=== PATIENT | female | born 1955 | race Caucasian/White ===

== ENCOUNTER 2019-05-29 19:37 | Emergency (ER) | payer BC ==
--- NOTE | 2019-05-29 19:57 | EDM.PDOC ---
ED HPI GENERAL MEDICAL PROBLEM - General Chief Complaint: General Stated Complaint: NILO JUSTIN Time Seen by Provider: 05/29/19 19:52 Source of Information: Reports: Patient History Limitations: Reports: No Limitations - History of Present Illness INITIAL COMMENTS - FREE TEXT/NARRATIVE: 23-year-old female presents to the ED for reevaluation after reportedly having a high serum potassium level at [facility] today. Routine lab work revealed a serum potassium level of 7.0. She has no symptoms of hyperkalemia. Her's serum creatinine is 0.6 indicating that this is most likely a fictitious number likely due to hemolysis of red cells. Prongs with irregular heartbeat and is wondering if the 2 were not connected. She just finished Holter monitor and hand in on Sunday this week and has not yet received the interpretation. She is having multiple unifocal PVCs in the ED. He is aware of them at times as well. Likely due to the compensatory pause "thud" that occurs with PVCs. Onset: Today Onset Date: 05/22/19 (The patient was in the clinic today for complete physical exam and had lab work performed. No defined that her serum potassium value returned abnormally high at 7.0. She brings along her lab work and her weight function shows a creatinine of 0.6. This strongly suggests that the elevated serum potassium is fictitious likely due to hemolysis.) Duration: Intermittent (Irregular heartbeat just finished a Holter monitor and has not received the results.) Location: Reports: Chest (He is aware of palpitations and headaches sides in her chest.) Quality: Reports: Other Severity: Moderate Improves with: Reports: None (Dictations) Worsens with: Reports: None Context: Denies: Activity, Exercise, Lifting, Sick Contact, Trauma, Other Associated Symptoms: Reports: Malaise. 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 Denies: SOB on Exertion Respiratory History: Reports: Asthma (Recently diagnosed with asthma.) Gastrointestinal History: Reports: Other (See Below) (Was ill with what sounds like gastroenteritis but brought up a good deal of dark black emesis concerning for possible blood. This was about 2 months ago. She has no other signs or symptoms of peptic ulcer disease.) Social & Family History - Living Situation & Occupation Living situation: Reports: Occupation: Employed ED ROS GENERAL - Review of Systems Review Of Systems: See Below Constitutional: Reports: Malaise, Weakness, Fatigue, Decreased Appetite. Denies : Fever, Chills, Weight Loss HEENT: Reports: Glasses Respiratory: Denies: Shortness of Breath, Wheezing, Pleuritic Chest Pain, Cough , Sputum Cardiovascular: Reports: Palpitations Endocrine: Reports: Fatigue GI/Abdominal: Reports: No Symptoms : Reports: No Symptoms Musculoskeletal: Reports: No Symptoms Skin: Reports: No Symptoms Neurological: Reports: No Symptoms Psychiatric: Reports: No Symptoms Hematologic/Lymphatic: Reports: No Symptoms Immunologic: Reports: No Symptoms ED EXAM, GENERAL - Physical Exam Exam: See Below Exam Limited By: No Limitations General Appearance: Alert, WD/WN, Anxious, Mild Distress, Other (Catheters 37.3. Heart rate was 108 at the bedside respiratory to 16 O2 sats 100% on room air BP 136/81.) Eye Exam: Bilateral Eye: Normal Inspection (No peripheral pallor.) Head: Atraumatic, Normocephalic Neck: Normal Inspection, Supple, Non-Tender, Full Range of Motion. No: Lymphadenopathy (L), Lymphadenopathy (R) Respiratory/Chest: No Respiratory Distress, Lungs Clear, Normal Breath Sounds, No Accessory Muscle Use, Chest Non-Tender Cardiovascular: Normal Peripheral Pulses, No Edema, No Gallop, No Murmur, No Rub , Irregularly Irregular (Yaya PVCs unifocal on the monitor.) Peripheral Pulses: 3+: Posterior Tibial (L), Posterior Tibial (R), Dorsalis Pedis (L), Dorsalis Pedis (R) GI/Abdominal: Normal Bowel Sounds, Soft, Non-Tender, No Organomegaly, No Abnormal Bruit, No Mass, Pelvis Stable Extremities: Normal Inspection, Normal Range of Motion, Non-Tender, No Pedal Edema Neurological: Alert, Oriented, CN II-XII Intact, Normal Cognition Psychiatric: Anxious Skin Exam: Warm, Dry, Intact, Normal Color, No Rash EKG INTERPRETATION EKG Date: 05/29/19 Time: 19:48 Rhythm: Other Rate (Beats/Min): 103 (Frequent multifocal PVCs.) [place]: Normal P-Wave: Present QRS: Normal ST-T: Normal QT: Normal EKG Interpretation Comments: Abnormal ECG Course - Vital Signs Last Recorded V/S: Last Vital Signs Temp 37.3 C 05/29/19 19:42 Pulse 108 H 05/29/19 19:42 Resp 16 05/29/19 19:42 BP 136/81 05/29/19 19:42 Pulse Ox 100 05/29/19 19:42 - Orders/Labs/Meds Orders: Active Orders 24 hr Category Date Time Status EKG Documentation Completion [RC] ASDIRECTED Care 05/29/19 19:55 Active EKG 12 Lead [EK] Stat Ther 05/29/19 19:54 Ordered Labs: Laboratory Tests 05/29/19 Range/Units 20:05 Sodium 138 (136-145) mEq/L Potassium 3.7 (3.5-5.1) mEq/L Chloride 101 (98-107) mEq/L Carbon Dioxide 28 (21-32) mEq/L Anion Gap 12.7 (5-15) BUN 10 (7-18) mg/dL Creatinine 0.8 (0.55-1.02) mg/dL Est Cr Clr Drug Dosing 74.49 mL/min Estimated GFR (MDRD) > 60 (>60) mL/min BUN/Creatinine Ratio 12.5 L (14-18) Glucose 102 (80-115) mg/dL Calcium 9.6 (8.5-10.1) mg/dL TSH 3rd Generation 2.236 (0.358-3.74) uIU/mL - Radiology Interpretation Free Text/Narrative:: 63-year-old female presents to the ED after reportedly having a high potassium value of 7.0 reported by lab test done earlier today from a complete physical examination in clinic. It is likely that this is fictitious since her creatinine is normal at 0.6. Her second problem is frequent problems with palpitations for the last couple of months. She just had a Holter monitor completed and turned it in on May 26. Results are pending. In the ED she is showing evidence of frequent multifocal PVCs. Remainder the ECG is normal. Plan: a BMP will be carried out. - Re-Assessments/Exams Free Text/Narrative Re-Assessment/Exam: 05/29/19 21:10 Labs reveal a normal sodium of 138. Potassium is 3.7. Chloride is 11 with a bicarbonate of 28. Anion gap is 12.7. BUNs 10 with a creatinine of 0.8. Estimate his GFR is greater than 60. Glucose is 102 with a calcium of 9.6. TSH is normal at 2.23 . Patient was reassured about the normal serum potassium values and that serum level of 7.0 was fictitious. Was likely secondary to hemolysis of the specimen. In the ED she is exhibiting multiple PVCs which are multifocal in origin. She is well aware of them. She is unlikely to have any coronary artery disease as she is a never smoker and her cholesterol was normal. She should have an echocardiogram carried out. She had a Holter monitor done recently with results pending. I think she would benefit from a short treatment of beta brenda and I will place her on atenolol extended release 25 mg once daily for the next month and see if she recognizes an improvement. I will take her off the medicine a month and see if she develops palpitations once again. Departure - Departure Time of Disposition: 20:53 Disposition: Home, Self-Care 01 Condition: Fair Clinical Impression: Palpitations with regular cardiac rhythm, Multifocal PVCs, Abnormal laboratory test - Discharge Information *PRESCRIPTION DRUG MONITORING PROGRAM REVIEWED*: Not Applicable *COPY OF PRESCRIPTION DRUG MONITORING REPORT IN PATIENT KAUSHIK: Not Applicable Prescriptions: Metoprolol Succinate [Toprol XL] 25 mg PO DAILY #30 tab.er Instructions: Premature Ventricular Contraction Referrals: Shavon Acosta NP [Primary Care Provider] - Forms: ED Department Discharge Additional Instructions: Evaluation in the emergency room today in regards to a reported elevated serum potassium level from labs drawn earlier today. The serum potassium level was reported to be 7.0. On looking at the rest of your labs which revealed a normal kidney function it was felt that this was most likely a fictitious value. Elevated potassium occurs if red blood cells get broken during the phlebotomy process. Especially if a small gauge needle was used to draw the blood. The potassium level in the emergency room in our lab is 3.7. where it should be. Her other labs show them to be within normal limits as well. However you are experiencing palpitations ,and the monitor shows frequent premature ventricular contractions which means the coming from the bottom of the heart and/or coming is much as 6 or 8 bpm. Since they are bothering you I would suggest a short course of Toprol 25 mg extended release once daily every morning to suppress them. See how things go over the next month and after review with you after monitor that was done recently make a decision was to whether or not you need to stay on this medication long-term or trial off the medicine and see if the palpitations recur. Discuss with your primary care provider. Sepsis Event Note - Evaluation Sepsis Screening Result: No Definite Risk - Focused Exam Vital Signs: Vital Signs Temp Pulse Resp BP Pulse Ox 05/29/19 19:42 37.3 C 108 H 16 136/81 100 Date Exam was Performed: 05/29/19 Time Exam was Performed: 21:49 - My Orders Last 24 Hours: My Active Orders 05/29/19 19:54 EKG 12 Lead [EK] Stat 05/29/19 19:55 EKG Documentation Completion [RC] ASDIRECTED - Assessment/Plan Last 24 Hours: My Active Orders 05/29/19 19:54 EKG 12 Lead [EK] Stat 05/29/19 19:55 EKG Documentation Completion [RC] ASDIRECTED
== END 2019-05-29 21:20 | disposition home or self-care (01) ==
LOC: JD.ED 19:37
DX: I49.3 Ventricular premature depolarization (principal); J45.909 Unspecified asthma, uncomplicated; Z79.899 Other long term (current) drug therapy
CPT/HCPCS: 36415; 80048; 84443; 93005; 93010; 99284; 99285-25

== ENCOUNTER 2020-12-11 20:50 | Emergency (ER) | payer BC ==
[2020-12-11] MEDS ORDERED: Ondansetron 4 MG/2 ML SDV IVPUSH ONE (21:26)
[2020-12-11] MEDS ORDERED: Sodium Chloride 0.9% 10 ML Syringe FLUSH PRN (21:26)
[2020-12-11] MEDS ORDERED: Sodium Chloride 0.9% 1,000 ML IV SCH (21:30)
[2020-12-11] MEDS ORDERED: diphenhydrAMINE 50 MG/ML SDV IVPUSH PRN (21:35)
[2020-12-11] MEDS ORDERED: Famotidine 20 MG/2 ML SDV IVPUSH PRN (21:35)
[2020-12-11] MEDS ORDERED: methylPREDNISolone Sodium Succinate 125 MG/2 ML SDV IVPUSH PRN (21:35)
[2020-12-11] MEDS ORDERED: EPINEPHrine 1 MG/ML SDV IM PRN (21:35)
[2020-12-11] MEDS ORDERED: Ketorolac 30 MG/ML SDV IVPUSH ONE (21:45)
[2020-12-11] MEDS ORDERED: Sodium Chloride 0.9% 10 ML Syringe FLUSH SCH (21:45)
[2020-12-11] MEDS ORDERED: diphenhydrAMINE 50 MG/ML SDV IVPUSH ONE (21:45)
[2020-12-11] MEDS ORDERED: HYDROmorphone 0.5 MG/0.5 ML Syringe IVPUSH ONE (22:55)
--- NOTE | 2020-12-11 23:42 | EDM.PDOC ---
ED HPI GENERAL MEDICAL PROBLEM - General Chief Complaint: Gastrointestinal Problem Stated Complaint: covid pos Time Seen by Provider: 12/11/20 21:03 Source of Information: Reports: Patient History Limitations: Reports: No Limitations - History of Present Illness INITIAL COMMENTS - FREE TEXT/NARRATIVE: The patient presents for nausea, vomiting and diarrhea. She feels she may be dehydrated. She has COVID 19 for the past 8 days. She has a slight cough and shortness of breath. She has generalized weakness. She did not get the vaccine. She has a history of asthma and irregular heart rhythm. She does not smoke. She also has a bad headache. Onset: Gradual Duration: Day(s): (8) Severity: Moderate Improves with: Reports: None Worsens with: Reports: None Associated Symptoms: Reports: Cough, Nausea/Vomiting, Shortness of Breath. Denies: Fever/Chills, Headaches Headache Pain Score (Numeric/FACES): 8 - Related Data Allergies Allergy/AdvReac Type Severity Reaction Status Date / Time No Known Allergies Allergy Verified 12/11/20 21:06 Home Meds: Home Meds Albuterol [Proventil HFA] 2 puff INH Q4H PRN 05/29/19 [History] Calcium Carbonate/Vitamin D3 [Calcium 1,000 + D3 Caplet] 1 each PO BID 05/29/19 [History] Metoprolol Succinate [Toprol XL] 25 mg PO DAILY #30 tab.er 05/29/19 [Rx] Ascorbic Acid [Vitamin C] 1,000 mg PO DAILY 12/11/20 [History] Flecainide [Tambocor] 100 mg PO BID 12/11/20 [History] Past Medical History HEENT History: Reports: Impaired Vision Cardiovascular History: Reports: Other (See Below) Respiratory History: Reports: Asthma Gastrointestinal History: Reports: Other (See Below) Genitourinary History: Reports: None 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 Musculoskeletal History: Reports: None Neurological History: Reports: None Psychiatric History: Reports: None Endocrine/Metabolic History: Reports: None Hematologic History: Reports: None Immunologic History: Reports: None Oncologic (Cancer) History: Reports: None Dermatologic History: Reports: None - Infectious Disease History Infectious Disease History: Reports: None, Novel Coronavirus - Past Surgical History Cardiovascular Surgical History: Reports: Varicose Social & Family History - Tobacco Use Tobacco Use Status *Q: Never Tobacco User Second Hand Smoke Exposure: No - Caffeine Use Caffeine Use: Reports: Coffee - Recreational Drug Use Recreational Drug Use: No - Living Situation & Occupation Living situation: Reports: Occupation: Employed ED ROS GENERAL - Review of Systems Review Of Systems: See Below Constitutional: Reports: Malaise, Weakness, Fatigue. Denies: Fever, Chills HEENT: Reports: No Symptoms Respiratory: Reports: Shortness of Breath, Cough Cardiovascular: Reports: No Symptoms Endocrine: Reports: Fatigue GI/Abdominal: Reports: Diarrhea, Nausea, Vomiting. Denies: Abdominal Pain : Reports: No Symptoms Musculoskeletal: Reports: No Symptoms Neurological: Reports: Headache ED EXAM, GI/ABD - Physical Exam Exam: See Below Exam Limited By: No Limitations General Appearance: Alert, No Apparent Distress Ears: Normal External Exam Nose: Normal Inspection Head: Atraumatic, Normocephalic Neck: Normal Inspection Respiratory/Chest: No Respiratory Distress, Lungs Clear, Normal Breath Sounds Cardiovascular: Regular Rate, Rhythm, No Edema, No Murmur GI/Abdominal Exam: Soft, Non-Tender, No Organomegaly, No Mass Back Exam: Normal Inspection Extremities: Normal Inspection Course - Vital Signs Last Recorded V/S: Last Vital Signs Temp 99.1 F 12/11/20 21:10 Pulse 64 12/12/20 00:15 Resp 18 12/12/20 00:15 BP 100/62 12/12/20 00:15 Pulse Ox 90 L 12/12/20 00:15 - Orders/Labs/Meds Orders: Active Orders 24 hr Category Date Time Status Cardiac Monitoring [RC] . DIRECTED Care 12/11/20 21:26 Active Peripheral IV Care [RC] . DIRECTED Care 12/11/20 21:26 Active Vital Signs [RC] Q15M Care 12/11/20 21:35 Active Chest 1V Frontal [CR] Stat Exams 12/11/20 21:27 Taken Head wo Cont [CT] Stat Exams 12/11/20 21:42 Taken EPINEPHrine [Adrenalin] Med 12/11/20 21:35 Active 0.3 mg IM ONETIME PRN Famotidine [Pepcid] Med 12/11/20 21:35 Active 20 mg IVPUSH ONETIME PRN Sodium Chloride 0.9% [Normal Saline] 1,000 ml Med 12/11/20 21:30 Active IV .BOLUS Sodium Chloride 0.9% [Saline Flush] Med 12/11/20 21:26 Active 10 ml FLUSH ASDIRECTED PRN Sodium Chloride 0.9% [Saline Flush] Med 12/11/20 21:45 Active 30 ml FLUSH ASDIRECTED diphenhydrAMINE [Benadryl] Med 12/11/20 21:35 Active 50 mg IVPUSH ONETIME PRN methylPREDNISolone Sod Succ [Solu-MEDROL] Med 12/11/20 21:35 Active 125 mg IVPUSH ONETIME PRN ED Antiemetic Medication Reflex [OM.PC] Stat Ot 12/11/20 21:26 Ordered Peripheral IV Insertion Adult [OM.PC] Stat Ot 12/11/20 21:26 Ordered Medication Orders Diphenhydramine HCl (Diphenhydramine 50 Mg/Ml Sdv) 50 mg IVPUSH ONETIME PRN PRN Reason: hypersensitivity reaction Epinephrine HCl (Epinephrine 1 Mg/Ml Sdv) 0.3 mg IM ONETIME PRN PRN Reason: hypersensitivity reaction Famotidine (Famotidine 20 Mg/2 Ml Sdv) 20 mg IVPUSH ONETIME PRN PRN Reason: hypersensitivity reaction Sodium Chloride (Normal Saline) 1,000 mls @ 1,000 mls/hr IV .BOLUS [facility] Last Admin: 12/11/20 21:49 Dose: 1,000 mls/hr Documented by: [id number] Methylprednisolone Sodium Succinate (Methylprednisolone Sodium Succinate 125 Mg/2 Ml Sdv) 125 mg IVPUSH ONETIME PRN PRN Reason: hypersensitivity reaction Sodium Chloride (Sodium Chloride 0.9% 10 Ml Syringe) 10 ml FLUSH ASDIRECTED PRN PRN Reason: Keep Vein Open Sodium Chloride (Sodium Chloride 0.9% 10 Ml Syringe) 30 ml FLUSH ASDIRECTED HELEN Labs: Laboratory Tests 12/11/20 12/11/20 12/11/20 Range/Units 21:45 21:45 21:45 WBC 6.39 (3.98-10.04) K/mm3 RBC 4.74 (3.98-5.22) M/mm3 Hgb 13.7 (11.2-15.7) gm/dl Hct 41.8 (34.1-44.9) % MCV 88.2 (79.4-94.8) fl MCH 28.9 (25.6-32.2) pg MCHC 32.8 (32.2-35.5) g/dl RDW Std Deviation 44.7 (36.4-46.3) fL Plt Count 223 (182-369) K/mm3 MPV 9.5 (9.4-12.3) fl Neut % (Auto) 73.4 H (34.0-71.1) % Lymph % (Auto) 17.8 L (19.3-51.7) % [place] % (Auto) 7.8 (4.7-12.5) % Eos % (Auto) 0 L (0.7-5.8) Baso % (Auto) 0.8 (0.1-1.2) % Neut # (Auto) 4.69 (1.56-6.13) K/mm3 Lymph # (Auto) 1.14 L (1.18-3.74) K/mm3 [place] # (Auto) 0.50 H (0.24-0.36) K/mm3 Eos # (Auto) 0.00 L (0.04-0.36) K/mm3 Baso # (Auto) 0.05 (0.01-0.08) K/mm3 Manual Slide Review Normal smear D-Dimer, Quantitative 0.77 H (0.19-0.50) mg/L Sodium 140 (136-145) mEq/L Potassium 3.9 (3.5-5.1) mEq/L Chloride 102 (98-107) mEq/L Carbon Dioxide 30 (21-32) mEq/L Anion Gap 11.9 (5-15) BUN 13 (7-18) mg/dL Creatinine 0.8 (0.55-1.02) mg/dL Est Cr Clr Drug Dosing 72.61 mL/min Estimated GFR (MDRD) > 60 (>60) mL/min BUN/Creatinine Ratio 16.3 (14-18) Glucose 110 H (70-99) mg/dL Calcium 8.6 (8.5-10.1) mg/dL Total Bilirubin 0.3 (0.2-1.0) mg/dL AST 27 (15-37) U/L ALT 30 (14-59) U/L Alkaline Phosphatase 106 (46-116) U/L C-Reactive Protein 7.3 H* (<1.0) mg/dL Total Protein 7.1 (6.4-8.2) g/dl Albumin 3.2 L (3.4-5.0) g/dl Globulin 3.9 gm/dL Albumin/Globulin Ratio 0.8 L (1-2) Meds: Medications Generic Name Dose Route Start Last Admin Trade Name Freq PRN Reason Stop Dose Admin Diphenhydramine HCl 50 mg 12/11/20 21:35 Diphenhydramine 50 Mg/Ml Sdv IVPUSH ONETIME PRN hypersensitivity reaction Epinephrine HCl 0.3 mg 12/11/20 21:35 Epinephrine 1 Mg/Ml Sdv IM ONETIME PRN hypersensitivity reaction Famotidine 20 mg 12/11/20 21:35 Famotidine 20 Mg/2 Ml Sdv IVPUSH ONETIME PRN hypersensitivity reaction Sodium Chloride 1,000 mls @ 1,000 mls/hr 12/11/20 21:30 12/11/20 21:49 Normal Saline IV 1,000 mls/hr .BOLUS HELEN Administration Methylprednisolone Sodium Succinate 125 mg 12/11/20 21:35 Methylprednisolone Sodium Succinate 125 Mg/2 Ml Sdv IVPUSH ONETIME PRN hypersensitivity reaction Sodium Chloride 10 ml 12/11/20 21:26 Sodium Chloride 0.9% 10 Ml Syringe FLUSH ASDIRECTED PRN Keep Vein Open Sodium Chloride 30 ml 12/11/20 21:45 Sodium Chloride 0.9% 10 Ml Syringe FLUSH ASDIRECTED HELEN Discontinued Medications Generic Name Dose Route Start Last Admin Trade Name Freq PRN Reason Stop Dose Admin Diphenhydramine HCl 50 mg 12/11/20 21:45 12/11/20 22:03 Diphenhydramine 50 Mg/Ml Sdv IVPUSH 12/11/20 21:46 50 mg ONETIME ONE Administration Hydromorphone HCl 0.5 mg 12/11/20 22:55 12/11/20 23:00 Hydromorphone 0.5 Mg/0.5 Ml Syringe IVPUSH 12/11/20 22:56 0.5 mg ONETIME ONE Administration CASIRIVIMAB/IMDEVIMAB 10 ml/ 110 mls @ 220 mls/hr 12/11/20 21:35 12/11/20 22:52 Sodium Chloride IV 12/11/20 22:04 220 mls/hr ONETIME ONE Administration Ketorolac Tromethamine 30 mg 12/11/20 21:45 12/11/20 22:03 Ketorolac 30 Mg/Ml Sdv IVPUSH 12/11/20 21:46 30 mg ONETIME ONE Administration Ondansetron HCl 4 mg 12/11/20 21:26 12/11/20 21:49 Ondansetron 4 Mg/2 Ml Sdv IVPUSH 12/11/20 21:27 4 mg ONETIME ONE Administration - Re-Assessments/Exams Free Text/Narrative Re-Assessment/Exam: 12/11/20 23:40 I ordered an IV NS 1L bolus, zofran 4mg IV, benadryl 50mg IV, toradol 30mg IV, labs, CXR and a CT of her head. I have also ordered the REGEN-COV. She is eligible because of the asthma and heart disease. I spoke with the patient to provide information about REGEN-COV treatment. I offered them the Patient and Caregiver EUA REGEN-COV Fact Sheet to read and review. I stated the drug has been approved by an emergency use authorization (EUA} process and has not fully been FDA reviewed or approved. The patient meets the EUA requirements. I discussed there are other potential treatment options that are currently not FDA approved to treat COVID 19. Offered opportunity to ask questions and all questions were answered. The patient voiced understanding and agreed to proceed with treatment. Her CBC looks good. Her D-dimer was slightly elevated at 0.77. Her glucose was elevated at 110. Her CRP was elevated at 7.3. 12/12/20 01:[address] of her head looks good. There was some atalectasis to the right lower lung but no infiltrate. She feels much better. I will discharge her home with something for nausea and some hydrocodone for pain as needed. Departure - Departure Time of Disposition: 01:40 Disposition: Home, Self-Care 01 Condition: Good Clinical Impression: COVID Headache Qualifiers: Headache type: other headache syndrome Qualified Code(s): G44.89 - Other headache syndrome Nausea & vomiting Qualifiers: Vomiting type: unspecified Vomiting Intractability: non-intractable Qualified Code(s): R11.2 - Nausea with vomiting, unspecified - Discharge Information *PRESCRIPTION DRUG MONITORING PROGRAM REVIEWED*: Not Applicable *COPY OF PRESCRIPTION DRUG MONITORING REPORT IN PATIENT KAUSHIK: Not Applicable Referrals: Afshin Major MD [Primary Care Provider] - 1 Week Forms: ED Department Discharge Additional Instructions: Drink plenty of fluids. Take the zofran every 6 hours as needed for nausea and vomiting. Take tylenol or motrin as needed for any headaches. If that does not help, try the hydrocodone. Please return if you are worse such as more shortness of breath, cough or if you cannot keep anything down. Sepsis Event Note (ED) - Evaluation Sepsis Screening Result: No Definite Risk - Focused Exam Vital Signs: Vital Signs Temp Pulse Resp BP Pulse Ox 12/12/20 00:15 64 18 100/62 90 L 12/12/20 00:00 64 18 104/63 91 L 12/11/20 23:45 66 18 108/62 92 L 12/11/20 23:30 67 16 102/61 90 L 12/11/20 23:15 65 16 106/64 90 L 12/11/20 23:00 68 16 96 12/11/20 22:45 75 16 117/68 96 12/11/20 22:30 67 18 113/95 H 96 12/11/20 22:15 73 20 109/77 95 12/11/20 22:00 73 20 112/81 94 L 12/11/20 21:45 76 20 112/71 92 L 12/11/20 21:30 76 20 108/68 93 L 12/11/20 21:10 99.1 F 78 16 119/72 97 - My Orders Last 24 Hours: My Active Orders 12/11/20 21:26 Cardiac Monitoring [RC] . DIRECTED Peripheral IV Care [RC] . DIRECTED Sodium Chloride 0.9% [Saline Flush] 10 ml FLUSH ASDIRECTED PRN ED Antiemetic Medication Reflex [OM.PC] Stat Peripheral IV Insertion Adult [OM.PC] Stat 12/11/20 21:27 Chest 1V Frontal [CR] Stat 12/11/20 21:30 Sodium Chloride 0.9% [Normal Saline] 1,000 ml IV .BOLUS 12/11/20 21:35 Vital Signs [RC] Q15M EPINEPHrine [Adrenalin] 0.3 mg IM ONETIME PRN Famotidine [Pepcid] 20 mg IVPUSH ONETIME PRN diphenhydrAMINE [Benadryl] 50 mg IVPUSH ONETIME PRN methylPREDNISolone Sod Succ [Solu-MEDROL] 125 mg IVPUSH ONETIME PRN 12/11/20 21:42 Head wo Cont [CT] Stat 12/11/20 21:45 Sodium Chloride 0.9% [Saline Flush] 30 ml FLUSH ASDIRECTED - Assessment/Plan Last 24 Hours: My Active Orders 12/11/20 21:26 Cardiac Monitoring [RC] . DIRECTED Peripheral IV Care [RC] . DIRECTED Sodium Chloride 0.9% [Saline Flush] 10 ml FLUSH ASDIRECTED PRN ED Antiemetic Medication Reflex [OM.PC] Stat Peripheral IV Insertion Adult [OM.PC] Stat 12/11/20 21:27 Chest 1V Frontal [CR] Stat 12/11/20 21:30 Sodium Chloride 0.9% [Normal Saline] 1,000 ml IV .BOLUS 12/11/20 21:35 Vital Signs [RC] Q15M EPINEPHrine [Adrenalin] 0.3 mg IM ONETIME PRN Famotidine [Pepcid] 20 mg IVPUSH ONETIME PRN diphenhydrAMINE [Benadryl] 50 mg IVPUSH ONETIME PRN methylPREDNISolone Sod Succ [Solu-MEDROL] 125 mg IVPUSH ONETIME PRN 12/11/20 21:42 Head wo Cont [CT] Stat 12/11/20 21:45 Sodium Chloride 0.9% [Saline Flush] 30 ml FLUSH ASDIRECTED
--- NOTE | 2020-12-12 08:24 | CR ---
Chest: Portable view of the chest was obtained. Comparison: No prior chest imaging available. Heart size and mediastinum are normal. Lungs are clear with no acute parenchymal change. Bony structures are slightly osteopenic. Slight superior spurring is noted within the right acromioclavicular joint. No acute osseous abnormality is appreciated. Impression: 1. Incidental findings as noted above. 2. Nothing acute is seen on portable chest x-ray. Diagnostic code #2
--- NOTE | 2020-12-12 08:51 | CT ---
Head CT Technique: Multiple axial sections through the brain were obtained. Intravenous contrast was not utilized. Reconstructed coronal and sagittal images were obtained. Comparison: No prior intracranial imaging is available. Findings: Soft tissue density is noted which opacifies both maxillary sinuses, a large area within the ethmoid sinuses and within the frontal and sphenoid sinus. Possible fluid within the frontal sinuses is noted. Findings could represent diffuse acute sinusitis. Ventricles along with basal cisterns and sulci over the convexities are mildly prominent. No abnormal parenchymal densities are seen. No midline shift or mass-effect is seen. Bone window settings were reviewed. Visualized mastoid sinuses show nothing acute. No acute calvarial abnormality is appreciated. Impression: 1. Diffuse mucosal thickening within the paranasal sinuses with fluid seen within the frontal sinuses. These findings are most likely due to diffuse sinusitis which is likely acute. 2. Mild generalized atrophy. No acute intracranial abnormality is appreciated. Diagnostic code #3 I agree with preliminary report from [facility], finalized on 12/12/20, 3:20 AM CDT, code 1
== END 2020-12-12 01:56 | disposition home or self-care (01) ==
LOC: JD.ED 20:50
DX: U07.1 COVID-19 (principal); J45.909 Unspecified asthma, uncomplicated; R11.2 Nausea with vomiting, unspecified
CPT/HCPCS: 36415; 70450; 71045; 80053; 85025; 85379; 86140; 96374; 96375; 99285; J1170; J1200; J1885; J2405; J7030; M0243; Q0243; 99284

== ENCOUNTER 2020-12-17 20:19 | Emergency (ER) | payer BC ==
--- NOTE | 2020-12-17 20:39 | EDM.PDOC ---
ED HPI GENERAL MEDICAL PROBLEM - General Chief Complaint: Gastrointestinal Problem Stated Complaint: NAUSEA/VOMITING/DIZZY/HEADACHE Time Seen by Provider: 12/17/20 20:32 Source of Information: Reports: Patient History Limitations: Reports: No Limitations - History of Present Illness INITIAL COMMENTS - FREE TEXT/NARRATIVE: Patient is a 65-year-old female who is complaining of having a headache that has been present for approximately 2 weeks. Due to this headache she saw her PCP who did a Covid test on her approximately 9 days ago which was positive. Patient does have a mild productive cough producing green sputum but her main complaint is that every time she eats or drinks she vomits. She denies having any diarrhea denies any hematemesis or bloody or tarry stools. Patient is feeling lightheaded with standing suddenly and feels that she is dehydrated. Patient was seen here approximately 1 week ago for similar symptoms and they treated her with fluids and meds send her home with some Zofran and Oley which has not been helping with her symptoms. She denies any change in her vision or hearing. She denies any numbness weakness paresthesias. Patient had a CT scan of her brain when she was here 1 week ago. Duration: Week(s): (Two) Location: Reports: Head, Abdomen Quality: Reports: Ache, Pressure Severity: Severe Improves with: Reports: Eating Worsens with: Reports: Eating Associated Symptoms: Reports: cough w sputum, Headaches, Loss of Appetite Headache Pain Score (Numeric/FACES): 10 - Related Data Allergies Allergy/AdvReac Type Severity Reaction Status Date / Time No Known Allergies Allergy Verified 12/17/20 20:38 Home Meds: Home Meds Albuterol [Proventil HFA] 2 puff INH Q4H PRN 05/29/19 [History] Calcium Carbonate/Vitamin D3 [Calcium 1,000 + D3 Caplet] 1 each PO BID 05/29/19 [History] Metoprolol Succinate [Toprol XL] 25 mg PO DAILY #30 tab.er 05/29/19 [Rx] Ascorbic Acid [Vitamin C] 1,000 mg PO DAILY 12/11/20 [History] Flecainide [Tambocor] 100 mg PO BID 12/11/20 [History] Acetaminophen/Codeine [Tylenol with Codeine No.3 300MG/30MG] 1 tab PO Q4H PRN #14 tab 12/17/20 [Rx] Metoclopramide [Reglan] 5 mg PO Q8H PRN #20 tab 12/17/20 [Rx] Past Medical History HEENT History: Reports: Impaired Vision Cardiovascular History: Reports: Other (See Below) Respiratory History: Reports: Asthma Gastrointestinal History: Reports: Other (See Below) Genitourinary History: Reports: None [employer] History: Reports: None Musculoskeletal History: Reports: None Neurological History: Reports: None Psychiatric History: Reports: None Endocrine/Metabolic History: Reports: None Hematologic History: Reports: None Immunologic History: Reports: None Oncologic (Cancer) History: Reports: None Dermatologic History: Reports: None - Infectious Disease History Infectious Disease History: Reports: None, Novel Coronavirus - Past Surgical History Cardiovascular Surgical History: Reports: Varicose Social & Family History - Caffeine Use Caffeine Use: Reports: Coffee - Living Situation & Occupation Living situation: Reports: Occupation: Employed ED ROS GENERAL - Review of Systems Review Of Systems: Comprehensive ROS is negative, except as noted in HPI. ED EXAM, GI/ABD - Physical Exam Exam: See Below Exam Limited By: No Limitations General Appearance: Alert, No Apparent Distress Head: Normocephalic Neck: Normal Inspection, Full Range of Motion Respiratory/Chest: No Respiratory Distress, Lungs Clear, Normal Breath Sounds, No Accessory Muscle Use Cardiovascular: Regular Rate, Rhythm, No Edema, No JVD GI/Abdominal Exam: Normal Bowel Sounds, Soft, Non-Tender, No Organomegaly. No: Distended, Guarding, Rebound, Tender, Abnormal Bowel Sounds, Mass Back Exam: Normal Inspection. No: CVA Tenderness (L), CVA Tenderness (R) Extremities: Normal Inspection, Normal Range of Motion, No Pedal Edema Neurological: Alert, Oriented, CN II-XII Intact, Normal Cognition Psychiatric: Normal Affect, Normal Mood Skin Exam: Warm, Dry, Normal Color, No Rash Lymphatic: No Adenopathy Course - Vital Signs Text/Narrative:: Patient is feeling much better with IV fluids and meds. She rates her headache pain as 1 out of 10 intensity. We are giving her a fluid challenge at this point if she passes out I will discharge her with prescription for Reglan. She states she wants no narcotics since they do not make her feel any better. Patient is able to drink 1 cup of ice water without any difficulty and states she is ready to go home at this time. Last Recorded V/S: Last Vital Signs Temp 97.7 F 12/17/20 20:33 Pulse 88 12/17/20 20:33 Resp 16 12/17/20 20:33 BP 122/89 12/17/20 20:33 Pulse Ox 96 12/17/20 20:33 - Orders/Labs/Meds Orders: Active Orders 24 hr Category Date Time Status UA W/O MICROSCOPIC [URIN] Stat Lab 12/17/20 20:50 Ordered Labs: Laboratory Tests 12/17/20 12/17/20 Range/Units 21:07 21:07 WBC 10.39 H (3.98-10.04) K/mm3 RBC 4.79 (3.98-5.22) M/mm3 Hgb 13.9 (11.2-15.7) gm/dl Hct 42.6 (34.1-44.9) % MCV 88.9 (79.4-94.8) fl MCH 29.0 (25.6-32.2) pg MCHC 32.6 (32.2-35.5) g/dl RDW Std Deviation 43.5 (36.4-46.3) fL Plt Count 395 H D (182-369) K/mm3 MPV 8.6 L (9.4-12.3) fl Neutrophils % (Manual) 63 H (40-60) % Band Neutrophils % 1 (0-10) % Lymphocytes % (Manual) 21 (20-40) % Atypical Lymphs % 2 % Monocytes % (Manual) 12 H (2-10) % Eosinophils % (Manual) 0 L (0.7-5.8) % Basophils % (Manual) 1 (0.1-1.2) Platelet Estimate Adequate RBC Morph Comment Normal Sodium 145 (136-145) mEq/L Potassium 4.0 (3.5-5.1) mEq/L Chloride 106 (98-107) mEq/L Carbon Dioxide 30 (21-32) mEq/L Anion Gap 13.0 (5-15) BUN 10 (7-18) mg/dL Creatinine 0.9 (0.55-1.02) mg/dL Est Cr Clr Drug Dosing 62.22 mL/min Estimated GFR (MDRD) > 60 (>60) mL/min BUN/Creatinine Ratio 11.1 L (14-18) Glucose 100 H (70-99) mg/dL Calcium 9.2 (8.5-10.1) mg/dL Total Bilirubin 0.5 (0.2-1.0) mg/dL AST 27 (15-37) U/L ALT 31 (14-59) U/L Alkaline Phosphatase 129 H (46-116) U/L Total Protein 7.6 (6.4-8.2) g/dl Albumin 3.0 L (3.4-5.0) g/dl Globulin 4.6 gm/dL Albumin/Globulin Ratio 0.7 L (1-2) Meds: Medications Discontinued Medications Generic Name Dose Route Start Last Admin Trade Name Freq PRN Reason Stop Dose Admin Diphenhydramine HCl 25 mg 12/17/20 20:48 12/17/20 21:04 Diphenhydramine 50 Mg/Ml Sdv IVPUSH 12/17/20 20:49 25 mg ONETIME ONE Administration Sodium Chloride 1,000 mls @ 1,000 mls/hr 12/17/20 20:48 12/17/20 21:04 Normal Saline IV 12/17/20 21:47 1,000 mls/hr ONETIME ONE Administration Ketorolac Tromethamine 30 mg 12/17/20 20:49 12/17/20 21:04 Ketorolac 30 Mg/Ml Sdv IVPUSH 12/17/20 20:50 30 mg ONETIME ONE Administration Metoclopramide HCl 10 mg 12/17/20 20:48 12/17/20 21:04 Metoclopramide 10 Mg/2 Ml Sdv IVPUSH 12/17/20 20:49 10 mg ONETIME ONE Administration Departure - Departure Time of Disposition: 22:08 Disposition: Home, Self-Care 01 Condition: Good Clinical Impression: Vomiting, Sinus headache - Discharge Information Instructions: Sinus Headache, Dehydration, Adult, [id number] Referrals: Afshin Major MD [Primary Care Provider] - Forms: ED Department Discharge Additional Instructions: Increase fluids. [id number] decongestants. Check with pharmacist for decongestant safe to use with your Toprol. Reglan as needed. Tylenol with codeine as needed. Return to ER if worse. Follow-up with PCP if symptoms continue. Sepsis Event Note (ED) - Evaluation Sepsis Screening Result: No Definite Risk - Focused Exam Vital Signs: Vital Signs Temp Pulse Resp BP Pulse Ox 12/17/20 20:33 97.7 F 88 16 122/89 96 - My Orders Last 24 Hours: My Active Orders 12/17/20 20:50 UA W/O MICROSCOPIC [URIN] Stat - Assessment/Plan Last 24 Hours: My Active Orders 12/17/20 20:50 UA W/O MICROSCOPIC [URIN] Stat
[2020-12-17] MEDS ORDERED: Metoclopramide 10 MG/2 ML SDV IVPUSH ONE (20:48)
[2020-12-17] MEDS ORDERED: diphenhydrAMINE 50 MG/ML SDV IVPUSH ONE (20:48)
[2020-12-17] MEDS ORDERED: Sodium Chloride 0.9% 1,000 ML IV ONE (20:48)
[2020-12-17] MEDS ORDERED: Ketorolac 30 MG/ML SDV IVPUSH ONE (20:49)
== END 2020-12-17 22:32 | disposition home or self-care (01) ==
LOC: JD.ED 20:19
DX: R51.9 Headache, unspecified (principal); R11.10 Vomiting, unspecified
CPT/HCPCS: 36415; 80053; 85007; 85027; 96374; 96375; 99284; J1200; J1885; J2765; J7030; 99283

== ENCOUNTER 2021-07-06 17:17 | Emergency (ER) | payer BC | END 2021-07-06 19:04 | disposition home or self-care (01) | LOC: JD.ED 17:17 | DX: I80.01 Phlebitis and thrombophlebitis of superficial vessels of right lower extremity (principal) | CPT/HCPCS: 93971-26-RT; 93971-RT ==

== ENCOUNTER 2025-03-22 08:16 | Emergency (ER) | payer MEDICARE, BC ==
[2025-03-22] MEDS ORDERED: Sodium Chloride 0.9% 10 ML Syringe FLUSH PRN (09:17)
[2025-03-22 09:41] LABS: BASOPHILS ABSOLUTE AUTO 0.0 K/mm3 (0.0-0.2); BASOPHILS PERCENT AUTO 0.1 % (0.0-1.0); EOSINOPHILS ABSOLUTE AUTO 0.2 K/mm3 (0.0-0.4); EOSINOPHILS PERCENT AUTO 2.3 % (0.0-6.0); IMMATURE GRAN ABSOLUTE AUTO 0.01 K/mm3 (0.00-0.05); IMMATURE GRAN PERCENT AUTO 0.1 % (0.0-0.4); LYMPHOCYTES ABSOLUTE AUTO 0.4 K/mm3 (1.0-4.8); LYMPHOCYTES PERCENT AUTO 4.9 % (24.0-44.0); MEAN PLATELET VOLUME 9.6 fl (9.4-12.3); MONOCYTES ABSOLUTE AUTO 0.5 K/mm3 (0.0-0.8); MONOCYTES PERCENT AUTO 5.7 % (0.0-8.0); NEUTROPHILS ABSOLUTE AUTO 7.1 K/mm3 (1.8-7.7); NEUTROPHILS PERCENT AUTO 86.9 % (41.0-71.0); NRBC ABSOLUTE 0.00 (0.00-0.02); NRBC PERCENT 0.0 % (0.0-0.2); PLATELET COUNT,PLT 182 K/mm3 (150-400); RED BLOOD CELL COUNT 4.39 M/mm3 (4.10-5.30); WHITE BLOOD CELL COUNT,WBC 8.19 K/mm3 (3.9-11.3)
[2025-03-22 10:00] LABS: A/G RATIO 1.0 (1-2); ALANINE AMINOTRANSFERASE,ALT 30.0 U/L (14-59); ASPARTATE AMNIOTRANSFERASE,AST 32.0 U/L (15-37); BILIRUBIN TOTAL 0.9 mg/dL (0.2-1.0); BLOOD UREA NITROGEN,BUN 23.0 mg/dL (7-18); CARBON DIOXIDE,CO2 26.0 mEq/L (21-32); CHLORIDE,CL 106.0 mEq/L (98-107); CREATININE 1.1 mg/dL (0.55-1.02); EST CRCL DRUG DOSING (CG) 49.75 mL/min; ESTIMATED GFR 55.0 mL/min (>60); GLUCOSE RANDOM 160.0 mg/dL (70-99); POTASSIUM,K 4.3 mEq/L (3.5-5.1); PROTEIN TOTAL,TP 6.6 g/dl (6.4-8.2); SODIUM,NA 143.0 mEq/L (136-145); TSH 2.16 uIU/mL (0.358-3.74)
[2025-03-22 10:32] LABS: TROPONIN I HIGH SENSITIVITY 96.0 pg/mL (<=51)
[2025-03-22] MEDS: Heparin Sodium/D5W 250 ML IV SCH (12:40)
[2025-03-22] MEDS: Heparin Sodium 5,000 Units/ML Vial IVPUSH ONE (12:44)
[2025-03-22 12:56] LABS: APPEARANCE,URINE CLEAR (Clear); GLUCOSE,URINE NEGATIVE (Negative); OCCULT BLOOD,URINE 1+ (Negative)
[2025-03-22 13:05] LABS: SQUAMOUS EPITHELIAL CELLS,UR 0-5 /hpf (0-5)
== END 2025-03-22 14:22 ==
LOC: JD.ED 08:16
DX: I21.4 Non-ST elevation (NSTEMI) myocardial infarction (principal); R11.2 Nausea with vomiting, unspecified; R19.7 Diarrhea, unspecified; Z79.899 Other long term (current) drug therapy; Z86.16 Personal history of COVID-19
CPT/HCPCS: 36415; 71045; 80053; 81001; 83690; 83735; 84443; 84484; 85025; 85730; 93005; 96361; 96365; 96366; 99285; J1644; J7030